=== PATIENT | female | born 1945 | race Caucasian/White ===

== ENCOUNTER → 2016-12-15 | Outpatient (CLI) | payer MEDICARE, OTHER | END | disposition home or self-care (01) | LOC: RAD.S 10:30 | DX: M79.605 Pain in left leg (principal) ==

== ENCOUNTER → 2016-12-24 | Outpatient (CLI) | payer MEDICARE, OTHER | END | disposition home or self-care (01) | LOC: RAD.S 09:23 | DX: M54.16 Radiculopathy, lumbar region (principal); M51.26 Other intervertebral disc displacement, lumbar region ==

== ENCOUNTER 2017-02-27 16:59 | Emergency (ER) | payer MEDICARE, OTHER ==
--- NOTE | 2017-02-28 20:34 | ER ---
ADMIT: 02/27/2017 RM/LOC: ER [facility] MR#: [id number] [id number] [address] [place] [address] Emergency Room Report SEX: F AGE: 71 : 1945 DATE: 02/27/2017 HISTORY OF PRESENT ILLNESS: The patient is a 71-year-old female, presents to emergency room with chills and fever for 1 hour. She says she has had hemorrhoids in the past and had noticed some bloody stool. She denies any diarrhea or left lower quadrant abdominal pain. No nausea or vomiting. No weakness or palpitation. No abdominal pain. No dizziness, fainting, rash, or confusion. PAST MEDICAL HISTORY: Gout, breast cancer, she has had a right breast lumpectomy and T and A, hysterectomy, and cholecystectomy. CURRENT MEDICATIONS: Include Humira [id number]. ALLERGIES: ALLERGIC TO ZINC, BUT NO OTHER ALLERGIES. FAMILY HISTORY: Lung cancer, leukemia, colon cancer, and breast cancer malignancy history in her family. PHYSICAL EXAMINATION: VITAL SIGNS: Blood pressure 159/73 with a heart rate of 124, respirations 22, and temp is 104.2. GENERAL: Alert, very pleasant, friends at bedside. HEENT: Normal inspection. No erythema in the posterior pharynx. Nasal mucosa patent. NECK: Supple. No adenopathy. RESPIRATIONS: No wheezes, crackles, or rhonchi. ABDOMEN: Nontender. No organomegaly. CVS: Tachycardic. SKIN: Good color and turgor. EXTREMITIES: Left pedal edema and ankle mild. NEUROLOGIC: Oriented x4. Mood and affect are appropriate. DIAGNOSTIC DATA: She has in her x-ray we did labs as we started the sepsis workup scar tissue in the lungs, no pneumonia, no bronchitis. Consultation with Dr. Reed recommends to treat with azithromycin and close followup. EKG, sinus tachycardia. ADMIT: 02/27/2017 RM/LOC: ER [facility] MR#: [id number] [address] [place] [id number] [address] [place] [address] Emergency Room Report SEX: F AGE: 71 : 1945 LABORATORY DATA: WBC 11.9. Chemistry; glucose 128, calcium 7.9, albumin 3.3, GFR 74, INR 1.08, lactic acid 1.3, magnesium 1.7. Blood in the urine 2+. Chest scar tissue lungs, no pneumonia, no bronchitis. CLINICAL IMPRESSION: Viral syndrome and fever. Azithromycin started via IV. The patient given the option of IV versus oral, she chose IV. Tylenol was given immediately after admission to the ER. Her temp has gone down to 101. Fluids were bumped up to from 100 mL an hour to open bolus. She does look much better, feels much better. Her procalcitonin was normal. Her next dose of antibiotic is tomorrow at 7 o'clock in the afternoon, after that daily for 5 days. Push. Encouraged fluids. Return to ER if needed. Tylenol or Motrin. Continue home medications. Activity as tolerated. BRAYDEN Amin / Caden Jimenez MD / modl JOB #: [id number] CC: Caden Jimenez MD, Attending Physician Fermin Zamarripa MD, Family Physician
== END 2017-02-27 20:35 | disposition home or self-care (01) ==
LOC: ER 16:59
DX: B34.9 Viral infection, unspecified (principal); R50.9 Fever, unspecified; Z85.3 Personal history of malignant neoplasm of breast; Z90.11 Acquired absence of right breast and nipple; Z90.710 Acquired absence of both cervix and uterus; Z90.89 Acquired absence of other organs; Z88.8 Allergy status to other drugs, medicaments and biological substances; Z87.891 Personal history of nicotine dependence